=== PATIENT | male | born 1995 | race Two or more races ===

== ENCOUNTER 2021-04-30 05:45 | Day surgery (SDC) | payer OTHER | END 2021-04-30 11:35 | disposition home or self-care (01) | LOC: CIR.AMB 05:45 | PROVIDERS: ATTEND Otolaryngology Otology & Neurotology | DX: H80.02 Otosclerosis involving oval window, nonobliterative, left ear (principal); Z20.822 Contact with and (suspected) exposure to COVID-19 ==